=== PATIENT | male | born 1955 | race Hispanic/Latino ===

== ENCOUNTER 2021-06-22 14:31 | Emergency (ER) | payer MEDICARE, OTHER ==
[~2021-06-22] VITALS: Ht 167.6 cm; Wt 78.9 kg
== END 2021-06-22 15:21 | disposition home or self-care (01) ==
LOC: FSED 15:03
DX: R05 Cough (principal); M79.10 Myalgia, unspecified site; R50.9 Fever, unspecified; Z20.822 Contact with and (suspected) exposure to COVID-19
CPT/HCPCS: 99282